=== PATIENT | male | born 1990 | race Caucasian/White ===

== ENCOUNTER 2024-04-04 12:39 | Inpatient (IN) | payer OTHER ==
[~2024-04-04] VITALS: Ht 185.4 cm; Wt 110.0 kg
[2024-04-04] MEDS: KETOROLAC TROMETH 30 MG/ML 1ML VIAL IV ONE (13:17)
[2024-04-04] MEDS: SODIUM CHLORIDE 0.9% 1,000 ML IVB ONE (13:18)
[2024-04-04] MEDS: MORPHINE SULFATE 4 MG/ML SYR/VIAL IV ONE (13:18)
[2024-04-04] MEDS: ONDANSETRON HCL 4 MG/2 ML VIAL IV ONE (13:18)
[2024-04-04 13:29] VITALS: PULSE 86; RESP 20; O2SAT 95
[2024-04-04 13:31] LABS: Basophils # (auto) 0.1 10 ^3/uL (0-0.2); Basophils % (auto) 1.1 % (0.0-2.0); Eosinophils # (auto) 0.4 10 ^3/uL (0-0.8); Eosinophils % (auto) 3.7 % (0.0-7.0); Hemoglobin 15.9 g/dL (13.5-17.5); Lymphocytes # (auto) 3.6 10 ^3/uL (0.4-5.4); Lymphocytes % (auto) 34.1 % (10.0-50.0); Mean Corpuscular Hemoglobin 28.9 pg (28.0-32.0); Mean Corpuscular Hgb Conc. 34.6 g/dL (32.0-36.0); Mean Corpuscular Volume 83.4 fL (80.0-100.0); Monocytes # (auto) 0.8 10 ^3/uL (0-1.3); Monocytes % (auto) 7.4 % (0.0-12.0); Neutrophils # (auto) 5.6 10 ^3/uL (1.6-8.6); Neutrophils % (auto) 53.7 % (37.0-80.0); Platelet Count (auto) 377 10^3/uL (140-450); Red Blood Cells 5.51 10^6/uL (4.5-5.90); Red Cell Distribution Width 13.8 % (11.8-14.3); White Blood Cell 10.5 10^3/uL (4.4-10.8)
[2024-04-04 14:07] LABS: Chloride 106 mmol/L (98-107); Sodium 141 mmol/L (136-145)
[2024-04-04 14:08] LABS: Anion Gap 14 (5-15); Calcium 10.5 mg/dL (8.7-10.4); Carbon Dioxide 21 mmol/L (20-30)
[2024-04-04 14:13] LABS: BUN/Creatinine Ratio 14.4 (10.0-20.0); Blood Urea Nitrogen 16 mg/dL (9-23); Glucose 109 mg/dL (74-106)
[2024-04-04] MEDS ORDERED: DOCUSATE SOD 100 MG CAP PO PRN (18:45)
[2024-04-04] MEDS ORDERED: NITROGLYCERIN 0.4 MG SL TAB SL PRN (18:45)
[2024-04-05] MEDS: MORPHINE SULFATE INJ 2 MG/ml SYRG IV PRN (00:56)
[2024-04-05] MEDS: ONDANSETRON HCL 4 MG/2 ML VIAL IV PRN (00:57)
[2024-04-05] MEDS: MORPHINE SULFATE INJ 2 MG/ml SYRG ONE (01:04)
[2024-04-05] MEDS: SODIUM CHLORIDE 0.9% 1,000 ML IV SCH (01:04)
[2024-04-05] MEDS: KETOROLAC TROMETH 30 MG/ML 1ML VIAL IV ONE (01:06)
[2024-04-05] MEDS: cefTRIAXone 1GM/50ML D5W 50 ML IV ONE ×3 (01:20→09:25)
[2024-04-05] MEDS: TAMSULOSIN HYDROCHLORIDE 0.4 MG CAP PO ONE ×2 (01:21→01:25)
[2024-04-05] MEDS: SODIUM CHLORIDE 0.9% 1,000 ML IV ONE (02:44)
[2024-04-05] MEDS: KETOROLAC TROMETH 30 MG/ML 1ML VIAL ONE (05:27)
[2024-04-05] MEDS: KETOROLAC TROMETH 30 MG/ML 1ML VIAL IV PRN (05:27)
[2024-04-05 08:00] VITALS: TEMP 97.8
[2024-04-05 09:11] VITALS: PULSE 74; RESP 18; O2SAT 96
[2024-04-05] MEDS: cefTRIAXone 1GM/50ML D5W 50 ML IV SCH (09:26)
[2024-04-05] MEDS ORDERED: ACE3T PO (13:39)
[2024-04-05] MEDS ORDERED: TAMS-35 PO (13:39)
[2024-04-05 14:00] VITALS: BP 118/67; PULSE 66; RESP 12; O2SAT 96
[2024-04-05] MEDS ORDERED: TAMSULOSIN HYDROCHLORIDE 0.4 MG CAP PO SCH (18:00)
== END 2024-04-05 14:41 | disposition home or self-care (01) | DRG 694 ==
LOC: EDSEX 12:39 → ER 12:39 → OVERFLOW 18:34 → ER 18:34 → UNDODEPER 23:41 → OVERFLOW 23:41
PROVIDERS: ADMIT Nurse Practitioner Family; ATTEND Nurse Practitioner Acute Care
DX: N13.2 Hydronephrosis with renal and ureteral calculous obstruction (principal); K57.32 Diverticulitis of large intestine without perforation or abscess without bleeding; K76.0 Fatty (change of) liver, not elsewhere classified; E83.52 Hypercalcemia; E66.9 Obesity, unspecified; Z68.32 Body mass index [BMI] 32.0-32.9, adult
CPT/HCPCS: 36415; 74176; 80048; 85025; 96361; 96374; 96375; G0378; J1885; J2405